=== PATIENT | female | born 1965 | race Hispanic/Latino ===

== ENCOUNTER 2018-04-13 08:19 | Day surgery (SDC) | payer OTHER ==
[2018-04-13] MEDS ORDERED: NACL 0.9% 1000 ML 1,000 ML ONE ×2 (10:17→11:46)
--- NOTE | 2018-04-13 10:25 | Anesthesia Consultation ---
Anesthesia Consult and Med Hx Date of service: 04/13/18 - Airway Anesthetic Teeth Evaluation: Good ROM Head & Neck: Adequate Mental/Hyoid Distance: Adequate Mallampati Class: Class II Intubation Access Assessment: Probably Good - Pre-Operative Health Status ASA Pre-Surgery Classification: ASA1 Proposed Anesthetic Plan: General - Pulmonary Hx Smoking: No Hx Sleep Apnea: No (LANA PRE SCREEN LOW RISK) - Cardiovascular System Hx Hypertension: No - Central Nervous System Hx Back Pain: Yes - Endocrine Hx Renal Disease: Yes (kidney stone) - Other Systems Hx Cancer: No
--- NOTE | 2018-04-13 10:25 | Anesthesia Day of Surgery ---
Anesthesia Day of Surgery - Day of Surgery Patient Examined: Yes Patient H&P Reviewed: Yes Patient is NPO: Yes
[2018-04-13] MEDS ORDERED: LOPRESSOR IV ONE (10:42)
[2018-04-13] MEDS ORDERED: DIPRIVAN 10 MG/ML IV ONE (10:42)
[2018-04-13] MEDS ORDERED: DILAUDID ONE (10:44)
[2018-04-13] MEDS ORDERED: ZOFRAN ONE (10:44)
[2018-04-13] MEDS ORDERED: DECADRON ONE (10:44)
[2018-04-13] MEDS ORDERED: PEPCID IV NR (11:00)
[2018-04-13] MEDS ORDERED: NACL 0.9% 1000 ML 1,000 ML IV SCH (11:00)
[2018-04-13] MEDS ORDERED: ANCEF/STERILE WATER 2 GM/20 ML IV NR (11:00)
[2018-04-13] MEDS ORDERED: VERSED IV NR (11:00)
--- NOTE | 2018-04-13 11:54 | Short Stay Summary ---
Short Stay Documentation Date of service: 04/13/18 - History H&P: obtained from office - Allergies and Medications Current Medications: Allergies oxycodone [From Percocet] Allergy (Verified 04/05/18 13:25) Vomiting Home Medications Medication Instructions Recorded Confirmed Last Taken Type HYDROcodone/APAP 5-325 [[place] 1 each PO Q6HR PRN 04/05/18 04/13/18 04/11/18 History 5/325] Ibuprofen [Advil 100 MG tab] 200 mg PO Q6H PRN 04/05/18 04/13/18 1 Week Ago History ~04/06/18 Active Medications Cefazolin Sodium (Ancef/Sterile Water 2 Gm/20 Ml) 2 gm IV PREOP NR Stop: 04/13/18 19:00 Famotidine (Pepcid) 20 mg IV PREOP NR Stop: 04/13/18 23:59 Last Admin: 04/13/18 10:44 Dose: 20 mg Sodium Chloride (Nacl 0.9% 1000 Ml) 1,000 mls @ 100 mls/hr IV DIRECT NORA Midazolam HCl (Versed) 2 mg IV PREOP NR Stop: 04/13/18 23:59 Last Admin: 04/13/18 10:46 Dose: 2 mg - Brief post op/procedure progress note Date of procedure: 04/13/18 Pre-op diagnosis: left renal stone 9mm Post-op diagnosis: same Procedure: left renal eswl Anesthesia: GETA Findings: good vis , mod frag Surgeon: RUFUS HENDERSON Estimated blood loss: minimal Pathology: none Condition: stable - Hospital course Hospital course: or pacu home - Disposition Condition at discharge: Good Disposition: DC-01 TO HOME OR SELFCARE Short Stay Discharge Plan Activity: advance as tolerated Diet: advance as tolerated Follow up with: RUFUS HENDERSON MD [Staff Physician] - 7 Days Forms: Outpatient Surgery DC Inst. Prescriptions: Cefuroxime [Ceftin] 500 mg PO Q12H #10 tablet HYDROcodone/APAP 5-325 [[place] 5-325 mg TAB] 1 each PO Q4HR PRN #25 tablet PRN Reason: Pain
[2018-04-13 20:47] VITALS: BP 113/55
--- NOTE | 2018-04-23 22:39 | Operative Report ---
PREOPERATIVE DIAGNOSIS: Left renal stone, 9 mm. POSTOPERATIVE DIAGNOSIS: Left renal stone, 9 mm. PROCEDURE: Left renal ESWL. ANESTHESIA: General. FINDINGS: Good visualization, moderate fragmentation. SURGEON: Chaparro Falcon MD. ESTIMATED BLOOD LOSS: Minimal. PATHOLOGY: None. CONDITION: Stable. HOSPITAL COURSE: ____. CLINICAL INDICATIONS: The patient counseled RCBA, antibiotics, SCDs. DESCRIPTION OF PROCEDURE: The patient transferred to OR suite in supine position. Biplanar fluoroscopy was used to target the left stone with an F2. There was good visualization. A total of 2500 shocks were delivered at maximum 5 kilovolts. Intermittent repositioning done as necessary. At the end of the procedure, moderate fragmentation. The patient awakened and transferred to PACU in good and stable condition. JOB# [id number] ATS/NTS
== END 2018-04-13 14:05 | disposition home or self-care (01) ==
LOC: OR 08:19
PROVIDERS: ATTEND Urology
DX: N20.0 Calculus of kidney (principal); I10 Essential (primary) hypertension; Z88.5 Allergy status to narcotic agent
CPT/HCPCS: 50590; J0690; J1100; J1170; J2250; J2405; J2704; J7030